=== PATIENT | female | born 1945 | race Caucasian/White ===

== ENCOUNTER 2018-04-04 22:59 | Outpatient (CLI) | payer MEDICARE | END 2018-04-04 23:00 | disposition critical access hospital (66) | LOC: EMS 22:59 | PROVIDERS: ATTEND Surgery | DX: R10.9 Unspecified abdominal pain (principal) | CPT/HCPCS: A0425; A0427 ==

== ENCOUNTER 2018-04-04 23:34 | Inpatient (IN) | payer MEDICARE, OTHER ==
--- NOTE | 2018-04-05 00:45 | ED Physician Documentation ---
PD HPI ABD PAIN - Stated complaint Stated Complaint: ABD PAIN - Chief complaint Chief Complaint: Abd Pain - History obtained from History obtained from: Patient - History of Present Illness Timing - onset: How many weeks ago (1) Timing - details: Gradual onset, Waxing and waning Pain level max: 10 Pain level now: 10 ("at least a ten", per patient) Quality: Pain Location: All over / everywhere Improved by: Laying still Worsened by: Moving Associated symptoms: Constipation. No: Fever, Nausea, Vomiting, Diarrhea, Dysuria, Hematuria Similar symptoms before: Diagnosis (SBO) Recently seen: Admitted (Discharged earler today (04/04/18) from [facility] ([place]) after overnight stay for SBO) - Additional information Additional information: patient says she developed cramping abdominal pain 1 week ago with abdominal distention, nausea but no vomiting. She was seen in a walk-in clinic in [place] and then sent to [facility] ED for further evaluation, CT A/P c/w partial SBO. She was sent home earlier today, and says she had soup this morning while still in the hospital and tolerated this well. However, this evening at home, she had potato soup that had more substance to it, and she rapidly developed severe abdominal pain that is unrelenting. Denies n/v. BIBA, given Fentanyl, zofran, and IV fluids en route with improvement in symptoms Review of Systems Constitutional: denies: Fever, Chills, Sweats Eyes: reports: Reviewed and negative Ears: reports: Reviewed and negative Nose: reports: Reviewed and negative Throat: reports: Reviewed and negative Cardiac: reports: Reviewed and negative Respiratory: reports: Reviewed and negative GI: reports: Abdominal Pain, Constipation. denies: Nausea, Vomiting, Diarrhea : denies: Dysuria, Frequency Skin: reports: Reviewed and negative Musculoskeletal: reports: Reviewed and negative Neurologic: reports: Reviewed and negative PD PAST MEDICAL HISTORY - Past Medical History Past Medical History: No Cardiovascular: Hypertension Respiratory: None Neuro: None Endocrine/Autoimmune: None GI: None DIRECTOR OF DISTRIBUTION: None : None HEENT: None Psych: None Musculoskeletal: None Derm: None - Past Surgical History Past Surgical History: No - Allergies Allergies/Adverse Reactions: Allergies Allergy/AdvReac Type Severity Reaction Status Date / Time No Known Drug Allergies Allergy Verified 04/04/18 23:39 - Social History Does the pt smoke?: No Smoking Status: Never smoker Does the pt drink ETOH?: Yes ETOH Use: Wine Does the pt have substance abuse?: No - Immunizations Immunizations are current?: Yes - POLST Patient has POLST: No PD ED PE NORMAL - Vitals Vital signs reviewed: Yes - General General: Alert and oriented X 3, No acute distress (NAD at rest, obvious painful discomfort with movement), Well developed/nourished - HEENT HEENT: Moist mucous membranes - Neck Neck: Supple, no meningeal sign - Cardiac Cardiac: RRR, No murmur, No gallop, No rub - Respiratory Respiratory: No respiratory distress, Clear bilaterally - Abdomen Abdomen: Soft, Non distended - Derm Derm: Normal color, Warm and dry - Extremities Extremities: No edema - Neuro Neuro: Alert and oriented X 3 PD ED PE EXPANDED - Abdomen Abdomen: Tender to palpation, Rebound, Guarding, Generalized/diffuse Results - Vitals Vitals: Vital Signs - 24 hr 04/04/18 04/05/18 04/05/18 23:39 01:05 01:59 Temperature 36.5 C 37.1 C 36.6 C Heart Rate 65 64 Respiratory 20 14 Rate Blood Pressure 152/70 H 152/70 H O2 Saturation 93 95 Oxygen O2 Source Room air - Labs Labs: Laboratory Tests 04/05/18 04/05/18 04/05/18 00:48 00:48 02:10 WBC 5.4 RBC 4.60 Hgb 13.5 Hct 40.3 MCV 87.7 MCH 29.4 MCHC 33.6 RDW 14.4 Plt Count 414 MPV 7.5 L Neut # (Auto) 4.7 Lymph # (Auto) 0.3 L Warrick # (Auto) 0.4 Eos # (Auto) 0.0 Baso # (Auto) 0.0 Absolute Nucleated RBC 0.00 Nucleated RBC % 0.1 Sodium 132 L Potassium 3.8 Chloride 100 L Carbon Dioxide 24 Anion Gap 8.0 BUN 17 Creatinine 0.8 Estimated GFR (MDRD) 71 L Glucose 159 H Lactic Acid 1.3 Calcium 8.4 L Total Bilirubin 0.4 AST 24 ALT 97 H Alkaline Phosphatase 44 Total Protein 5.3 L Albumin 2.8 L Globulin 2.5 Albumin/Globulin Ratio 1.1 Lipase 25 - Rads (name of study) abd. xrays Radiology: Prelim report reviewed, See rad report PD MEDICAL DECISION MAKING - ED course Complexity details: reviewed old records, reviewed results, re-evaluated patient, considered differential, d/w patient, d/w family ED course: D/W Dr. Ash, who came to ED and took patient to OR - Sepsis Event Vital Signs: Vital Signs - 24 hr 04/04/18 04/05/18 04/05/18 23:39 01:05 01:59 Temperature 36.5 C 37.1 C 36.6 C Heart Rate 65 64 Respiratory 20 14 Rate Blood Pressure 152/70 H 152/70 H O2 Saturation 93 95 Oxygen O2 Source Room air Departure - Departure Disposition: [facility] DC/Xfer Clinical Impression: Perforated abdominal viscus Condition: Stable Discharge Date/Time: 04/05/18 03:19
[2018-04-05 00:54] LABS: BASOPHILS % (AUTO) 0.4 %; EOSINOPHILS % (AUTO) 0.5 %; HGB - HEMOGLOBIN 13.5 g/dL (12.0-16.0); LYMPHOCYTES # (AUTO) 0.3 10^3/uL (1.5-3.5); LYMPHOCYTES % (AUTO) 6.1 %; MEAN CORPUSCULAR HEMOGLOBIN 29.4 pg (27.0-31.0); MEAN CORPUSCULAR HGB CONC 33.6 g/dL (32.0-36.0); MEAN CORPUSCULAR VOLUME 87.7 fL (81.0-99.0); MEAN PLATELET VOLUME 7.5 fL (7.9-10.8); MONOCYTES # (AUTO) 0.4 10^3/uL (0.0-1.0); MONOCYTES % (AUTO) 6.7 %; NEUTROPHILS # (AUTO) 4.7 10^3/uL (1.5-6.6); NEUTROPHILS % (AUTO) 86.3 %; PLT - PLATELET COUNT 414 10^3/uL (130-450); RED CELL DISTRIBUTION WIDTH 14.4 % (12.0-15.0); WHITE BLOOD COUNT 5.4 x10^3/uL (4.8-10.8)
[2018-04-05 01:08] LABS: ALBUMIN 2.8 g/dL (3.2-5.5); ALBUMIN/GLOBULIN RATIO 1.1 (1.0-2.2); BILIRUBIN,TOTAL 0.4 mg/dL (0.2-1.0); CALCIUM 8.4 mg/dL (8.5-10.3); CREATININE 0.8 mg/dL (0.4-1.0); TOTAL PROTEIN 5.3 g/dL (6.7-8.2)
--- NOTE | 2018-04-05 01:45 | XRAY Report ---
Reason: abd. pain Procedure Date: 04/05/2018 Accession Number: [id number] / [id number] Procedure: XR - Abdomen Acute CPT Code: FULL RESULT: EXAM: ABDOMINAL SERIES AND PA CHEST EXAM DATE: 04/05/2018 01:35 AM. CLINICAL HISTORY: Abd. pain. COMPARISON: None. TECHNIQUE: 2 views abdomen and 1 view chest. FINDINGS: CHEST: Lungs/Pleura: Retrocardiac opacity, which may reflect infiltrate or possibly a hiatal hernia. Trace left effusion. No pneumothorax. Mediastinum: Within exam limitations, cardiomediastinal contour is normal. ABDOMEN: Bowel Gas Pattern: Dilated loops of small and large bowel. Free Air: Present under the right hemidiaphragm. Other: None. IMPRESSION: Free intraperitoneal gas, compatible with bowel perforation. Critical result: Results called to Dr. Weston in the emergency department on 04/05/2018 at 1:45 AM. CASSIDY
[2018-04-05] MEDS ORDERED: PIPERACILLIN/TAZOBACTAM 3.375 GM in SODIUM CHLORIDE 0.9% MINIBAG 100 ML IV STA (01:58)
[2018-04-05] MEDS ORDERED: fentaNYL 100 MCG/2 ML VIAL IVP STA (01:58)
[2018-04-05] MEDS ORDERED: SODIUM CHLORIDE 0.9% 1,000 ML IV STA (01:58)
--- NOTE | 2018-04-05 02:55 | ANESTHESIA ---
Pre-Anesthesia VS, & Labs - Diagnosis perforated viscus - Procedure exploratory laparotomy Vital Signs: Temp Pulse Resp BP Pulse Ox 37.1 C 67 22 127/62 92 04/05/18 02:44 04/05/18 02:44 04/05/18 02:44 04/05/18 02:44 04/05/18 02:44 Height 5 ft 4 in Weight (kg) 58.1 kg Body Mass Index 21.9 - NPO >8 hours - Is Patient ?: Not Applicable - Lab Results Current Lab Results: Laboratory Tests 04/05/18 02:10: Lactic Acid 1.3 04/05/18 00:48: Sodium 132 L, Potassium 3.8, Chloride 100 L, Carbon Dioxide 24, Anion Gap 8.0, BUN 17, Creatinine 0.8, Estimated GFR (MDRD) 71 L, Glucose 159 H, Calcium 8.4 L, Total Bilirubin 0.4, AST 24, ALT 97 H, Alkaline Phosphatase 44, Total Protein 5.3 L, Albumin 2.8 L, Globulin 2.5, Albumin/Globulin Ratio 1.1, Lipase 25 04/05/18 00:48: WBC 5.4, RBC 4.60, Hgb 13.5, Hct 40.3, MCV 87.7, MCH 29.4, MCHC 33.6, RDW 14.4, Plt Count 414, MPV 7.5 L, Neut # (Auto) 4.7, Lymph # (Auto) 0.3 L, Overton # (Auto) 0.4, Eos # (Auto) 0.0, Baso # (Auto) 0.0, Absolute Nucleated RBC 0.00, Nucleated RBC % 0.1 Fish Bones: 04/05/18 00:48 04/05/18 00:48 Home Medications and Allergies Active Medications Sodium Chloride (Normal Saline 0.9%) 1,000 mls @ 150 mls/hr IV .Q6H40M STA Stop: 04/05/18 08:37 Last Admin: 04/05/18 02:21 Dose: 150 mls/hr Allergies/Adverse Reactions: Allergies Allergy/AdvReac Type Severity Reaction Status Date / Time No Known Drug Allergies Allergy Verified 04/04/18 23:39 Anes History & Medical History - Anesthetic History Family history of Anesthesia Complications: Denies - Medical History Cardiovascular: reports: Hypertension Pulmonary: reports: None Gastrointestinal: reports: None Urinary: reports: None Neuro: reports: None Musculoskeletal: reports: None Endocrine/Autoimmune: reports: None Blood Disorders: reports: None Skin: reports: None Smoking Status: Never smoker - Surgical History General: Colonoscopy Exam General: Alert Dental: WNL Mouth Openin Fingerbreadth Mallampati classification: III Thyromental Distance: 4-6 cm Respiratory: Lungs clear Cardiovascular: Regular rate Mental/Cognitive Status: Alert/Oriented X3 Plan Anesthesia Type: General Consent for Procedure(s) Verified and Reviewed: Yes Code Status: Attempt Resuscitation ASA classification: 2-Mild systemic disease Is this case an emergency?: Yes
--- NOTE | 2018-04-05 03:06 | CONSULTATION NOTE ---
Referring Provider Name of Referring Provider:: Damien Weston MD Consult Date: 04/05/18 Chief Complaint - Chief Complaint Chief Complaint: Free air under the RIGHT hemidiaphragm consistent with perforated bowel. History of Present Illness - Admitted From Admitted From:: [facility] ED - History Obtained From Records Reviewed: Yes History obtained from: Patient, Dr. Weston, chart. Exam Limitations: None. - History of Present Illness HPI Comment/Other: This very pleasant 72-year-old female presents to our emergency department with persistent and worsening abdominal pain. The patient had just been discharged from [facility] in [place] where she had been admitted with a small bowel obstruction. At that time she had had a CT scan which did not show any free air. It was felt that the patient had clinically improved so they fed her and sent her home. Unfortunately, once patient got home and had some potato soup the symptoms worsen to the point where she had unremitting severe abdominal pain. This was associated with some nausea and vomiting. Importantly the patient has had a rectal polyp removed followed by pelvic radiation. Ostensibly this was for a rectal cancer. History - Past Medical History Cardiovascular: reports: Hypertension Respiratory: reports: None Neuro: reports: None Endocrine/Autoimmune: reports: None GI: reports: None BODY ARTIST: reports: None : reports: None HEENT: reports: None Psych: reports: None Musculoskeletal: reports: None Derm: reports: None MRSA Hx?: No - POLST Patient has POLST: No Meds/Allgy - Allergies Allergies/Adverse Reactions: Allergies Allergy/AdvReac Type Severity Reaction Status Date / Time No Known Drug Allergies Allergy Verified 04/04/18 23:39 Review of Systems - Constitutional Constitutional: denies: Fatigue, Fever, Chills, Malaise - Eyes Eyes: denies: Pain - Ears, Nose & Throat Ears, Nose & Throat: denies: Ear pain - Cardiovascular Cariovascular: denies: Chest pain, Edema - Respiratory Respiratory: denies: Cough, Sputum production - Gastrointestinal Gastrointestinal: reports: Abdominal pain, Nausea. denies: Black stools, Bloody stools - Genitourinary Genitourinary: denies: Dysuria - Musculoskeletal Musculoskeletal: denies: Muscle pain, Back pain - Integumentary Integumentary: denies: Rash - Neurological Neurological: denies: General weakness, Focal weakness - Psychiatric Psychiatric: denies: Depression Exam - Vital Signs Reviewed Vital Signs: Yes Vital Signs: Vital Signs x48h Temp Pulse Resp BP Pulse Ox 04/05/18 02:44 37.1 C 67 22 127/62 92 04/05/18 01:59 36.6 C 64 14 152/70 H 95 04/05/18 01:05 37.1 C 65 20 152/70 H 93 04/04/18 23:39 36.5 C - Physical Exam General Appearance: positive: No acute distress (Lying quite still. Evaluated in room [address] [facility]'s emergency department. The daughter was at the bedside.) Eyes Bilateral: positive: No lid inflammation, Conjunctivae nml, No scleral icterus ENT: positive: Dry mucous membranes Neck: positive: Trachea midline Respiratory: positive: Chest non-tender, No respiratory distress, Breath sounds nml Cardiovascular: positive: Regular rate & rhythm Abdomen: positive: Tenderness (Peritoneal.), Abnml bowel sounds (Absent.) Skin: positive: Color nml Extremities: positive: Non-tender, Nml appearance Neurologic/Psychiatric: positive: Oriented x3 Conclusion/Plan - Diagnosis Diagnosis: Perforated viscus - Plan Plan: Exploratory laparotomy with possible small bowel resection and or large bowel resection and or ileostomy and/or colostomy. The patient is at risk for infecti on due to the perforated viscus. The risk of bleeding is remote. I explained all of this to her. For prophylaxis against deep venous thrombosis the patient will have teds and Venodyne's placed. I explained that she will be in the hospital for approximately 24 hours after she passes gas. Considering the fact that we do not know what is perforated or the extent of the peritonitis it is impossible to make a determination as to whether or not she will be discharged in 96 hours. Following the surgery the treatment will be supportive with IV fluids, antibiotics, pain medication as well as motivation to keep walking. 45 minutes of [id number] time was spent with the patient with majority of it spent in discussion, coordination of her care, as well as completion of the requisite paperwork I wish to thank Dr. Neil Weston for this consultation. - Lab Results Lab results reviewed: Yes Fish Bones: 04/05/18 00:48 04/05/18 00:48 - Diagnostic Imaging Results Diagnostic Imaging Results: positive: Final report reviewed, Read independently Diagnostic Imaging Results Comments: It is clear that there is free air underneath the right hemidiaphragm. The sour ce of this air is a little bit less clear.
[2018-04-05] MEDS ORDERED: BUPIVACAINE 0.5%-EPI 1:200000 PF 30 ML VIAL ONE (03:07)
[2018-04-05] MEDS ORDERED: LACTATED RINGERS 1,000 ML IV ONE ×3 (04:00→05:01)
[2018-04-05] MEDS ORDERED: BUPIVACAINE 0.5%-EPI 1:200000 PF 30 ML VIAL SUBQ ONE (04:00)
[2018-04-05] MEDS ORDERED: PHENOL THROAT SPRAY 177 ML MM PRN (04:55)
[2018-04-05] MEDS ORDERED: ONDANSETRON 4 MG/2 ML VIAL IVP PRN (04:55)
--- NOTE | 2018-04-05 04:59 | OPERATIVE REPORT ---
Operative Report - General Admit Date: 04/05/18 Planned Procedure: Exploratory laparotomy, possible small bowel resection, possible large jaime Pre-Op Diagnosis: Perforated viscus Procedure Performed: Exploratory laparotomy with resection of small bowel perforation and side to side small bowel anastomosis, abdominal washout, placement of drain Post Op Diagnosis: Perforation and obstruction of small bowel by a very very hard piece of wha - Procedure Note Primary Surgeon: Tj Ash MD Anesthesia Provider: Christine Leahy CRNA Anesthesia Technique: General ET tube IV Fluids (mL): 2,000 Estimated Blood Loss (mL): 5 Urine Output (mL): 50 Drain/Tube Type: Cayden drain (19 Fr Cayden) Complications: None - Other Other Information/Narrative: OPERATIVE DESCRIPTION/REPORT: After verbal and written informed consent was obtained detailing the risks of infection, bleeding requiring transfusion with its risks, nerve injury, and , and after I met with the patient confirming the surgery, the patient was brought to the operative suite and placed supine on the operating table. Great care was taken to avoid pressure points to prevent pressure necrosis or nerve injury. Monitoring devices were applied along with TEDs and pneumatic compressive stockings (to prevent DVT). The patient received preoperative antibiotics for surgical prophylaxis. Christine Leahy CRNA sedated and anesthetized the patient for the entire procedure. The patient was prepped and draped in the usual sterile manner. With the patient draped my initials were clearly visible. A "time in" then confirmed that the patient was identified with 3 identifiers (name, date and medical record number), the history and physical was in the chart, the signed consent confirming the procedure was in the chart, the patient was in the correct position, the aforementioned prophylactic measures were in place or given, we had the correct personnel and equipment to complete the procedure and that anesthesia, surgery and nursing were given an opportunity to express any concerns. With the agreement of everyone in the room, we proceeded with the operation. A vertical incision was made above and below the umbilicus and carried around the umbilicus. Sharp dissection utilizing Bovie electrocautery was used to expose the linea alba. The linea alba and subsequently the peritoneum were incised gaining entry into the abdomen without incident. Turbid light green fluid was noted in the abdomen that had a slight feculent smell. Manual examination of the abdomen quickly identified the problem. In the mid-portion of the ileum was an extremely hard intraluminal mass that due to its size and relatively sharp shape had clearly obstructed and perforated the small bowel. The small bowel beyond this was decompressed. I opened the bowel using the perforation in a transverse manner. The intraluminal mass was removed and it had layers. It was not identifiable by me but appeared to be very very dense probable food material. I must impress again on how hard this lesion was - it was rock like. I removed it and used the two limb of the ileum to place the two ends of a AMINATA-75 stapler. I fired the stapler forming the [id number] anastamosis. The mucosal opening was then resected with the placement of the AMINATA-75 stapler with a reload. The resected portion of the ileum and the hard lesion was sent for pathologic evaluation. The anastamosis was then butressed circumferentially with 3-0 Vicryl Limbert sutures. Manual examination revealed that the anastamosis was widely patent. I then "ran" the small bowel from the ligament of Treitz to the cecum and there were no other areas that were compromised and there were no other hard intraluminal masses. There were, however, multiple small bowel diverticulae in the mesentary. The abdomen was then copiously irrigated with 2 liters of warm sterile saline. A separate stab incision was used to place a 19 Fr Cayden drain. The drain was directed into the midportion of the abdomen. The drain was secured to the skin using a 3-0 Nylon in a Zay sandaled fashion. The fascia was closed using 0 looped PDS in a running fashion. This was started superiorly and inferiorly and run to the middle tying the two ends together and dunking the knot. The skin incision was approximated with skin sacha. At this point a time out was performed that confirmed that all the counts were correct, the procedure that was performed, the blood loss, the IV fluids administered, and the patients condition. A dressing was placed on the wound. Having tolerated the procedure well, the patient was subsequently extubated and taken to recovery room in good and stable condition. Dragon disclaimer: This document was created in part using voice recognition technology. Because of the inherent limitations of the system ([employer]'s [employer] user manual states that the licensee understands that speech recognition is a statistical process and that recognition errors are inherent in the process), occasional same sounding word substitutions and grammatical errors do occur and persist despite proofreading. Please read this document for context.
[2018-04-05] MEDS ORDERED: DEXAMETHASONE 4 MG/ML VIAL IVP ONE (05:00)
[2018-04-05] MEDS ORDERED: ONDANSETRON 4 MG/2 ML VIAL IVP ONE (05:00)
[2018-04-05] MEDS ORDERED: ROCURONIUM 50 MG/5 ML VIAL IVP ONE (05:00)
[2018-04-05] MEDS ORDERED: ACETAMINOPHEN 1,000 MG/100 ML 100 ML IV ONE ×2 (05:00→05:17)
[2018-04-05] MEDS ORDERED: PROPOFOL 200 MG/20 ML VIAL IVP ONE (05:00)
[2018-04-05] MEDS ORDERED: fentaNYL 250 MCG/5 ML VIAL IVP ONE (05:00)
[2018-04-05] MEDS ORDERED: KETOROLAC 30 MG/ML VIAL ONE (05:16)
[2018-04-05] MEDS: D5NS W/20 MEQ KCL 1,000 ML IV SCH ×2 (05:51→17:44)
[2018-04-05] MEDS ORDERED: PIPERACILLIN/TAZOBACTAM 3.375 GM in SODIUM CHLORIDE 0.9% MINIBAG 100 ML IV SCH (06:00)
[2018-04-05] MEDS: PANTOPRAZOLE 40 MG VIAL IVP SCH (06:34)
[2018-04-05] MEDS: SODIUM CHLORIDE FLUSH 0.9% 10 ML SYRINGE IVP PRN ×2 (06:34→18:25)
[2018-04-05] MEDS: HYDROmorphone 1 MG/ML CARPUJECT IVP PRN ×2 (06:40→09:10)
--- NOTE | 2018-04-05 06:45 | XRAY Report ---
Reason: NG tube placement Procedure Date: 04/05/2018 Accession Number: [id number] / [id number] Procedure: XR - Chest 1 View X-Ray CPT Code: 31420 FULL RESULT: EXAM: CHEST RADIOGRAPHY EXAM DATE: 04/05/2018 06:36 AM. CLINICAL HISTORY: NG tube placement. COMPARISON: ABDOMEN ACUTE 04/05/2018 1:15 AM. TECHNIQUE: 1 view. FINDINGS: Lungs/Pleura: Retrocardiac density persists. Mediastinum: Within exam limitations, the cardiomediastinal contour is normal. Other: Enteric tube terminates in the stomach. IMPRESSION: Enteric tube terminating in the stomach. Persistent retrocardiac opacity. RADIA
[2018-04-05] MEDS: SODIUM CHLORIDE FLUSH 0.9% 10 ML SYRINGE IVP SCH ×2 (07:11→17:44)
[2018-04-05 07:41] LABS: BILIRUBIN,URINE NEGATIVE (NEGATIVE); GLUCOSE, URINE (UA) NEGATIVE (NEGATIVE); KETONES,URINE (UA) NEGATIVE (NEGATIVE); LEUKOCYTE ESTERASE, URINE NEGATIVE (NEGATIVE); NITRITE,URINE POSITIVE (NEGATIVE); OCCULT BLOOD,URINE TRACE-LYSE (NEGATIVE); PROTEIN,URINE NEGATIVE (NEGATIVE); UROBILINOGEN,URINE 0.2 (NORMAL) E.U./dL (NORMAL)
[2018-04-05 08:00] LABS: CLARITY,URINE CLEAR (CLEAR)
[2018-04-05 08:04] LABS: RBC,URINE None Seen /HPF (0-5); SQUAMOUS EPITHELIAL CELL,UR FEW Squamous (<= Few)
[2018-04-05 08:05] LABS: BACTERIA,URINE Many /HPF (None Seen)
[2018-04-05 08:08] LABS: EPITHELIAL CELLS,UR RARE Renal Tubular /HPF (<= Few); MUCUS,URINE Few Strands
[2018-04-05] MEDS: PIPERACILLIN/TAZOBACTAM 3.375 GM in SODIUM CHLORIDE 0.9% MINIBAG 100 ML IV SCH ×3 (08:54→20:15)
[2018-04-05] MEDS ORDERED: HYDROmorphone 0.5 MG/0.5 ML SYRINGE ONE ×2 (09:10→11:47)
[2018-04-05] MEDS: ACETAMINOPHEN 1,000 MG/100 ML 100 ML IV SCH ×2 (11:51→17:42)
[2018-04-05] MEDS: HYDROmorphone 0.5 MG/0.5 ML SYRINGE IVP PRN ×3 (11:52→18:25)
[2018-04-06] MEDS: ACETAMINOPHEN 1,000 MG/100 ML 100 ML IV SCH ×4 (00:07→18:45)
[2018-04-06] MEDS: PIPERACILLIN/TAZOBACTAM 3.375 GM in SODIUM CHLORIDE 0.9% MINIBAG 100 ML IV SCH ×4 (01:19→20:14)
[2018-04-06] MEDS: SODIUM CHLORIDE FLUSH 0.9% 10 ML SYRINGE IVP SCH ×3 (02:35→15:34)
[2018-04-06] MEDS: D5NS W/20 MEQ KCL 1,000 ML IV SCH ×2 (04:49→16:21)
[2018-04-06] MEDS: PANTOPRAZOLE 40 MG VIAL IVP SCH (06:28)
[2018-04-06] MEDS: HYDROmorphone 0.5 MG/0.5 ML SYRINGE IVP PRN ×2 (08:50→17:42)
--- NOTE | 2018-04-06 18:06 | PROVIDER PROGRESS NOTE ---
Subjective - General Admit Date: 04/05/18 Procedure Date: 04/05/18 Post Op Days: 2 Procedure Performed: Exploratory laparotomy, resection of small bowel perforation, small bowel a - Review of Systems Wound/Incisions: positive: Dressing dry and intact General: positive: No symptoms HEENT: positive: No symptoms Pulmonary: positive: No symptoms Cardiovascular: positive: No symptoms Gastrointestinal: positive: No symptoms Genitourinary: positive: No symptoms Musculoskeletal: positive: No symptoms Skin: positive: No symptoms Psychiatric: positive: No symptoms Objective - Patient Data Reviewed Vital Signs: Yes Vital Signs: Vital Signs x48h Temp Pulse Pulse Resp BP Pulse Ox 04/06/18 17:21 36.4 C L 63 20 99 04/06/18 16:38 166/82 H 04/06/18 16:07 36.4 C L 63 20 182/72 H 99 04/06/18 12:57 60 146/58 H Weight: Weight 04/04/18 04/05/18 04/06/18 23:59 23:59 23:59 Weight (kg) 58.1 kg 59.5 kg Intake & Output: Intake and Output Totals x24h 04/04/18 04/05/18 04/06/18 23:59 23:59 23:59 Intake Total 3040.000 3330.000 Output Total 955 925 Balance 2085.000 2405.000 - Lab Results Lab Results: 04/05/18 00:48 04/05/18 00:48 - Current Medications Current Medications: Current Medications Generic Name Dose Route Start Last Admin Trade Name Freq PRN Reason Stop Dose Admin Hydromorphone HCl 0.5 mg 04/05/18 11:46 04/06/18 17:42 Dilaudid Inj Syringe IVP 0.5 mg Q2HR PRN Administration PAIN Potassium Chloride/Dextrose/Sod Cl 1,000 mls @ 100 mls/hr 04/05/18 05:00 04/06/18 17:03 IV 100 mls/hr .Q10H LINDA Infusion Piperacillin Sod/Tazobactam 100 mls @ 200 mls/hr 04/05/18 08:00 04/06/18 13:56 Sod 3.375 gm/ Sodium Chloride IV Infused Q6H LINDA Infusion Pantoprazole Sodium 40 mg 04/05/18 07:00 09/26/18 06:28 Protonix IVP 40 mg QDAC LINDA Administration Phenol/Menthol 1 sprays 04/05/18 04:55 04/06/18 00:05 Chloraseptic MM 1 sprays Q2HR PRN Administration Throat Pain Sodium Chloride 10 ml 04/05/18 09:00 04/06/18 15:34 Normal Saline Flush 0.9% IVP Not Given 0100,0900,1700 LINDA Sodium Chloride 10 ml 04/05/18 04:52 04/05/18 18:25 Normal Saline Flush 0.9% IVP 10 ml PRN PRN Administration NEEDED PER PROVIDER ORDERS - Physical Exam Wound/Incisions: positive: Dressing dry and intact General Appearance: positive: No acute distress Eyes Bilateral: positive: No lid inflammation, Conjunctivae nml, No scleral icterus ENT: positive: No signs of dehydration Neck: positive: Trachea midline Respiratory: positive: Chest non-tender, No respiratory distress, Breath sounds nml Cardiovascular: positive: Regular rate & rhythm Abdomen: positive: Nml bowel sounds, Tenderness (Incisional.) Skin: positive: Color nml Extremities: positive: Non-tender, Nml appearance Neurologic/Psychiatric: positive: Oriented x3 ABX Reporting Has patient been on IV antibiotics over the past 48 hours?: Yes Impression/Plan - Problem List Problem List: POD #1 s/p exploratory laparotomy with resection of small bowel perforation and [id number] anastamosis 1) FEN On ERAS protocol. 2) ID IV antibiotics for bowel perforation with gross spillage of intestinal contents into abdomen. 3) DVT Prophylaxis in place and patient is wonderfully ambulatory. 4) Path Pending. 5) HTN Will start po meds when patient can clearly tolerate.
[2018-04-06] MEDS ORDERED: LISINOPRIL 20 MG TABLET PO SCH (23:00)
[2018-04-07] MEDS: ENALAPRILAT 1.25 MG/ML VIAL IVP SCH ×2 (00:04→05:53)
[2018-04-07] MEDS: SODIUM CHLORIDE FLUSH 0.9% 10 ML SYRINGE IVP SCH ×4 (00:08→16:44)
[2018-04-07] MEDS: ACETAMINOPHEN 1,000 MG/100 ML 100 ML IV SCH ×2 (00:50→06:28)
[2018-04-07] MEDS: D5NS W/20 MEQ KCL 1,000 ML IV SCH ×4 (01:54→16:46)
[2018-04-07] MEDS: PIPERACILLIN/TAZOBACTAM 3.375 GM in SODIUM CHLORIDE 0.9% MINIBAG 100 ML IV SCH ×4 (02:01→21:02)
[2018-04-07] MEDS: HYDROmorphone 0.5 MG/0.5 ML SYRINGE IVP PRN (03:55)
[2018-04-07] MEDS: PANTOPRAZOLE 40 MG VIAL IVP SCH (06:59)
[2018-04-07] MEDS ORDERED: ACETAMINOPHEN 500 MG TABLET PO PRN (09:44)
[2018-04-07] MEDS ORDERED: HYDROmorphone 0.5 MG/0.5 ML SYRINGE IVP PRN (09:45)
[2018-04-07] MEDS: LISINOPRIL 20 MG TABLET PO SCH ×2 (11:23→21:02)
[2018-04-07] MEDS: oxyCODONE 5 MG TABLET PO PRN (21:26)
--- NOTE | 2018-04-07 21:33 | PROVIDER PROGRESS NOTE ---
Subjective - General Admit Date: 04/05/18 Procedure Date: 04/05/18 Post Op Days: 2 Procedure Performed: Exploratory laparotomy, resection of small bowel perforation, small bowel a - Review of Systems Wound/Incisions: positive: Healing well Drain Type: 19 Fr Cayden Drain Output Description: Serous Approximate mls Output: 135 General: positive: No symptoms HEENT: positive: No symptoms Pulmonary: positive: No symptoms Cardiovascular: positive: No symptoms Gastrointestinal: positive: No symptoms Genitourinary: positive: No symptoms Musculoskeletal: positive: No symptoms Skin: positive: No symptoms Psychiatric: positive: No symptoms - Other Other Information/Narrative: Patient has passed gas today. Feeling better. Blood pressure on the high side but expected with surgery performed. Objective - Patient Data Reviewed Vital Signs: Yes Vital Signs: Vital Signs x48h Temp Pulse Resp BP Pulse Ox 04/07/18 21:06 70 194/81 H 04/07/18 16:51 36.8 C 70 20 180/98 H 99 Weight: Weight 04/05/18 04/06/18 04/07/18 23:59 23:59 23:59 Weight (kg) 59.5 kg Intake & Output: Intake and Output Totals x24h 04/05/18 04/06/18 04/07/18 23:59 23:59 23:59 Intake Total 3040.000 3875.000 3600 Output Total 955 1555 3010 Balance 2085.000 2320.000 590 - Lab Results Lab Results: 04/05/18 00:48 04/05/18 00:48 - Current Medications Current Medications: Current Medications Generic Name Dose Route Start Last Admin Trade Name Freq PRN Reason Stop Dose Admin Hydromorphone HCl 0.5 mg 04/07/18 09:45 04/07/18 16:44 Dilaudid Inj Syringe IVP 0.5 mg Q2HR PRN Administration PAIN Piperacillin Sod/Tazobactam 100 mls @ 200 mls/hr 04/05/18 08:00 04/07/18 21 :02 Sod 3.375 gm/ Sodium Chloride IV 200 mls/hr Q6H LINDA Administration Potassium Chloride/Dextrose/Sod Cl 1,000 mls @ 50 mls/hr 04/07/18 09:45 04/07/18 16:46 IV 50 mls/hr .Q20H LINDA Administration Lisinopril 20 mg 04/07/18 10:00 04/07/18 21:02 Zestril PO 20 mg BID LINDA Administration Oxycodone HCl 5 mg 04/07/18 09:43 04/07/18 21:26 Roxicodone PO 5 mg Q4HR PRN Administration PAIN Pantoprazole Sodium 40 mg 04/05/18 07:00 04/07/18 06:59 Protonix IVP 40 mg QDAC LINDA Administration Phenol/Menthol 1 sprays 04/05/18 04:55 04/06/18 00:05 Chloraseptic MM 1 sprays Q2HR PRN Administration Throat Pain Sodium Chloride 10 ml 04/05/18 09:00 04/07/18 16:44 Normal Saline Flush 0.9% IVP 10 ml 0100,0900,1700 LINDA Administration Sodium Chloride 10 ml 04/05/18 04:52 04/05/18 18:25 Normal Saline Flush 0.9% IVP 10 ml PRN PRN Administration NEEDED PER PROVIDER ORDERS - Physical Exam Wound/Incisions: positive: Healing well General Appearance: positive: No acute distress Eyes Bilateral: positive: No lid inflammation, Conjunctivae nml, No scleral icterus ENT: positive: No signs of dehydration Neck: positive: Trachea midline Respiratory: positive: Chest non-tender, No respiratory distress, Breath sounds nml Cardiovascular: positive: Regular rate & rhythm Abdomen: positive: Nml bowel sounds, Tenderness (Incisional.) Skin: positive: Color nml Extremities: positive: Non-tender, Nml appearance Neurologic/Psychiatric: positive: Oriented x3 ABX Reporting Has patient been on IV antibiotics over the past 48 hours?: Yes Impression/Plan - Problem List Problem List: POD #2 s/p exploratory laparotomy with resection of small bowel perforation and yyik-lo-[id number] anastamosis 1) FEN Tolerating a diet and passing gas. IVF decreased. 2) ID Still on IV antibiotics for bowel perforation with gross spillage of intestinal contents into abdomen. Check CBC in AM. 3) DVT Prophylaxis in place and patient is wonderfully ambulatory. 4) Path Pending. 5) HTN Lisinopril 20 mg BID (home med) started. Will not treat unless symptomatic. 6) Care Shower in AM.
[2018-04-08] MEDS: PIPERACILLIN/TAZOBACTAM 3.375 GM in SODIUM CHLORIDE 0.9% MINIBAG 100 ML IV SCH ×3 (01:54→14:10)
[2018-04-08] MEDS: oxyCODONE 5 MG TABLET PO PRN ×2 (02:16→14:09)
[2018-04-08] MEDS: SODIUM CHLORIDE FLUSH 0.9% 10 ML SYRINGE IVP SCH ×2 (02:26→06:23)
[2018-04-08] MEDS: PANTOPRAZOLE 40 MG VIAL IVP SCH (06:15)
[2018-04-08] MEDS: LISINOPRIL 20 MG TABLET PO SCH (08:46)
[2018-04-08 08:51] VITALS: BP 170/90
--- NOTE | 2018-04-08 13:54 | DISCHARGE SUMMARY ---
"Discharge Summary Admit Date: 04/05/18 Discharge Date: 04/08/18 Discharging Provider: Tj Ash MD Code Status: Attempt Resuscitation Condition at Discharge: Good Discharge Disposition: 01 Home, Self Care - DIAGNOSES Admission Diagnoses: Free air, perforated viscus, SBO Discharge Diagnoses with Status of Each Condition: All resolved. - HPI History of Present Illness: 72 year old female presented to [facility] ED with peritoneal abdominal pain associated with an elevated WBC and free air on AXR. Diagnosis of viscus perforation made and patient taken urgently to the operating room where I resected the perforated ileum and performed a [id number] anastamosis. - CONSULTS | PROCEDURES Consultations: Surgical consult. Procedures: Exploratory laparotomy and resection of bowel perforation with [id number] anastamosis (Nilsa on 04/05/18) - HOSPITAL COURSE Hospital Course: Uncomplicated. - ALLERGIES Allergies/Adverse Reactions: Allergies Allergy/AdvReac Type Severity Reaction Status Date / Time No Known Drug Allergies Allergy Verified 04/04/18 23:39 - MEDICATIONS Home Medications: Ambulatory Orders Medication Instructions Recorded Confirmed Ascorbic Acid [Vitamin C] 500 mg PO DAILY 04/05/18 04/05/18 Aspirin [Aspirin EC] 81 mg PO DAILY 04/05/18 04/05/18 Calcium Carbonate/Vitamin D3 1 each PO DAILY 04/05/18 04/05/18 [Calcium 600 + Vit D 400 Tablet] Carvedilol 9.375 mg PO BID 04/05/18 04/05/18 Cetirizine HCl 10 mg PO DAILY 04/05/18 04/05/18 Fluticasone [Flonase] 2 sprays [place] DAILY 04/05/18 04/05/18 Lisinopril 20 mg PO BID 04/05/18 04/05/18 Loratadine [Claritin] 10 mg PO DAILY 04/05/18 04/05/18 Multivitamin [Theragran] 1 tab PO DAILY 04/05/18 04/05/18 Home Medications Other | Comments: Ciprofloxacin, Flagyl, Percocet, Colace written for. - PHYSICAL EXAM AT DISCHARGE General Appearance: positive: No acute distress Eyes Bilateral: positive: No lid inflammation, Conjunctivae nml, No scleral icterus ENT: positive: No signs of dehydration Neck: positive: Trachea midline Respiratory: positive: Chest non-tender, No respiratory distress, Breath sounds nml Cardiovascular: positive: Regular rate & rhythm Abdomen: positive: Tenderness (Incisional.), Other (Removed the drain as well as half the sacha and the patient tolerated this well.) Skin: positive: Color nml Extremities: positive: Non-tender, Nml appearance Neurologic/Psychiatric: positive: Oriented x3 - LABS Result Diagrams: 04/05/18 00:48 04/05/18 00:48 - FOLLOW UP Follow Up: In my office either this Wednesday or . Call on Wednesday for appointment later in the week. - TIME SPENT Time Spent in Discharge (Minutes): 45"
--- NOTE | 2018-04-08 14:06 | Discharge Plan ---
Discharge Plan Disposition: Home, Self Care Condition: Good Prescriptions: Ciprofloxacin HCl [Cipro] 500 mg PO BID #14 tablet Docusate Sodium 250Mg Capsule [Colace 250Mg Capsule] 250 mg PO DAILY #10 capsule metroNIDAZOLE [Flagyl] 250 mg PO Q6H #28 tablet oxyCODONE/ACET 5/325 [Percocet 5 mg/325 mg] 1 each PO Q4-6H #20 tablet Diet: Regular Activity Restrictions: No lifting >15 pounds for 6 weeks. Shower Restrictions: No Driving Restrictions: Yes (Until seen and cleared by me.) Weight Bearing: Full Weight Additional Instructions or Follow Up instructions: Ice pack to wound if it helps. Okay to shower, hot tub, swim, general diet, walk, run, climb stairs, have sex. No Smoking: If you smoke, Please STOP! Call for help. Follow-up with: Shavonne Painter MD [Primary Care Provider] - Tj Ash MD [Provider Admit Priv/Credential] -
== END 2018-04-08 15:15 | disposition home or self-care (01) | DRG 330 ==
LOC: EDUNIT# → ED 23:34 → MS3 04-05 02:35 → MS2 04-05 15:30
PROVIDERS: ADMIT Surgery; ATTEND Surgery
PROC: 0D1B0ZB Bypass Ileum to Ileum, Open Approach (ICD-10-PCS; 2018-04-05)
PROC: 0DT80ZZ Resection of Small Intestine, Open Approach (ICD-10-PCS; principal; 2018-04-05 02:52)
DX: K63.1 Perforation of intestine (nontraumatic) (principal); K59.00 Constipation, unspecified; K56.609 Unspecified intestinal obstruction, unspecified as to partial versus complete obstruction; I10 Essential (primary) hypertension; T18.3XXA Foreign body in small intestine, initial encounter
CPT/HCPCS: 36415; 71045; 74022; 80053; 81001; 81003; 83605; 83690; 85025; 87086; 87181; 96365; 96375; 99283; 99284

== ENCOUNTER 2019-04-09 00:39 | Emergency (ER) | payer MEDICARE ==
[2019-04-09 01:38] LABS: BASOPHILS # (AUTO) 0.1 10^3/uL (0.0-0.1); BASOPHILS % (AUTO) 0.6 %; EOSINOPHILS # (AUTO) 0.1 10^3/uL (0.0-0.7); EOSINOPHILS % (AUTO) 0.5 %; HGB - HEMOGLOBIN 10.5 g/dL (12.0-16.0); LYMPHOCYTES % (AUTO) 7.8 %; MEAN CORPUSCULAR HEMOGLOBIN 20.8 pg (27.0-31.0); MEAN CORPUSCULAR VOLUME 69.2 fL (81.0-99.0); MEAN PLATELET VOLUME 10.1 fL (7.9-10.8); MONOCYTES # (AUTO) 0.7 10^3/uL (0.0-1.0); MONOCYTES % (AUTO) 5.4 %; NEUTROPHILS # (AUTO) 10.6 10^3/uL (1.5-6.6); NEUTROPHILS % (AUTO) 85.4 %; PLT - PLATELET COUNT 465 10^3/uL (130-450); RED BLOOD COUNT 5.06 10^6/uL (4.20-5.40); RED CELL DISTRIBUTION WIDTH 23.8 % (12.0-15.0); WHITE BLOOD COUNT 12.4 x10^3/uL (4.8-10.8)
[2019-04-09] MEDS ORDERED: SODIUM CHLORIDE 0.9% 1,000 ML IV ONE (01:40)
[2019-04-09] MEDS ORDERED: ONDANSETRON 4 MG/2 ML VIAL IVP STA (01:40)
[2019-04-09] MEDS ORDERED: MORPHINE 2 MG/ML CARPUJECT IVP STA (01:40)
--- NOTE | 2019-04-09 01:42 | ED Physician Documentation ---
History of Present Illness - Stated complaint Stated Complaint: N/V CRAMPS - Chief complaint Chief Complaint: Abd Pain - Additonal information Additional information: This is a 73-year-old female with history of bowel obstructions and past bowel perforation ~1 year ago who presents with abdominal pain vomiting and cramping. Patient had a dinner in [facility], and on her way home in the evening she began developing some abdominal pain. She has vomited twice, emesis was nonbloody and nonbilious. Her pain is become severe and crampy, it is somewhat migratory. Her belly does feel distended this feels similar to the past bowel obstruction she has had. No fever. 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 : Incontinence, Frequency HEENT: None Psych: None Musculoskeletal: Scoliosis Derm: None - Past Surgical History Past Surgical History: No General: Colonoscopy HEENT: Cataracts - Present Medications Home Medications: Ambulatory Orders Medication Instructions Recorded Confirmed Ascorbic Acid [Vitamin C] 500 mg PO DAILY 04/05/18 04/05/18 Aspirin [Aspirin EC] 81 mg PO DAILY 04/05/18 04/05/18 Calcium Carbonate/Vitamin D3 1 each PO DAILY 04/05/18 04/05/18 [Calcium 600-Vit D3 400 Tablet] Carvedilol 9.375 mg PO BID 04/05/18 04/05/18 Cetirizine HCl 10 mg PO DAILY 04/05/18 04/05/18 Fluticasone [Flonase] 2 sprays [place]EN DAILY 04/05/18 04/05/18 Lisinopril 20 mg PO BID 04/05/18 04/05/18 Loratadine [Claritin] 10 mg PO DAILY 04/05/18 04/05/18 Multivitamin [Theragran] 1 tab PO DAILY 04/05/18 04/05/18 Ciprofloxacin HCl [Cipro] 500 mg PO BID #14 tablet 04/08/18 Docusate Sodium 250Mg Capsule 250 mg PO DAILY #10 capsule 04/08/18 [Colace 250Mg Capsule] metroNIDAZOLE [Flagyl] 250 mg PO Q6H #28 tablet 04/08/18 oxyCODONE/ACET 5/325 [Percocet 5 1 each PO Q4-6H #20 tablet 04/08/18 mg/325 mg] Ondansetron Odt [Zofran] 4 mg TL Q6H PRN #8 tablet 04/09/19 - Allergies Allergies/Adverse Reactions: Allergies Allergy/AdvReac Type Severity Reaction Status Date / Time No Known Drug Allergies Allergy Verified 04/09/19 00:44 - Social History Does the pt smoke?: No Smoking Status: Never smoker Does the pt drink ETOH?: Yes Does the pt have substance abuse?: No - Immunizations Immunizations are current?: Yes - POLST Patient has POLST: No PD ED PE NORMAL - Vitals Vital signs reviewed: Yes - General General: Alert and oriented X 3 - HEENT HEENT: PERRL - Neck Neck: Supple, no meningeal sign - Cardiac Cardiac: RRR - Respiratory Respiratory: Clear bilaterally - Abdomen Abdomen: Other (Bowel sounds present and hyperactive, abdomen is very slightly distended, Patient is tender to palpation more in the left lower quadrant.No guarding.) - Derm Derm: Warm and dry - Extremities Extremities: No deformity - Neuro Neuro: Alert and oriented X 3 - Psych Psych: Normal mood, Normal affect Results - Vitals Vitals: Oxygen O2 Source Room air - Labs Labs: Laboratory Tests 04/09/19 04/09/19 04/09/19 01:10 01:10 02:40 WBC 12.4 H RBC 5.06 Hgb 10.5 L Hct 35.0 L MCV 69.2 L MCH 20.8 L MCHC 30.0 L RDW 23.8 H Plt Count 465 H MPV 10.1 Neut # (Auto) 10.6 H Lymph # (Auto) 1.0 L [place] # (Auto) 0.7 Eos # (Auto) 0.1 Baso # (Auto) 0.1 Absolute Nucleated RBC 0.00 Nucleated RBC % 0.0 Manual Slide Review Indicated WBC Morphology NORMAL APPEARANCE Platelet Estimate INCREASED (>450,000) Platelet Morphology NORMAL APPEARANCE RBC Morph Micro Appear 1+ ANISOCYTOSIS Sodium 139 Potassium 3.8 Chloride 101 Carbon Dioxide 28 Anion Gap 10.0 BUN 18 Creatinine 0.9 Estimated GFR (MDRD) 62 L Glucose 160 H Calcium 9.9 Total Bilirubin 0.3 AST 23 ALT 21 Alkaline Phosphatase 63 Total Protein 7.3 Albumin 4.3 Globulin 3.0 Albumin/Globulin Ratio 1.4 Lipase 36 Urine Color YELLOW Urine Clarity CLEAR Urine pH 7.5 Ur Specific [place] 1.015 Urine Protein NEGATIVE Urine Glucose (UA) NEGATIVE Urine Ketones 40 H Urine Occult Blood NEGATIVE Urine Nitrite NEGATIVE Urine Bilirubin NEGATIVE Urine Urobilinogen 0.2 (NORMAL) Ur Leukocyte Esterase TRACE H Urine RBC None Seen Urine WBC 4-5 Ur Squamous Epith Cells MOD Squamous H Urine Bacteria Many H Ur Microscopic Review INDICATED Urine Culture Comments NOT INDICATED - Rads (name of study) CT abd/pelvis Radiology: Other (Moderate hiatal hernia, no evident etiology for patient's nausea and vomiting) PD MEDICAL DECISION MAKING - ED course Complexity details: considered differential (Bowel obstruction, diverticulitis, bowel perforation, pancreatitis, biliary pathology, partial obstruction) ED course: On arrival patient is in significant pain, she was given morphine, Zofran and 1 L normal saline bolus. Her labs reveal a mild leukocytosis, and anemia which appears slightly worse than last value we have in our system. Patient states she knows of this anemia and is following up with her primary care provider on this already and taken iron supplements. CT scan was performed and shows no evidence of obstruction, does show moderate hiatal hernia. On repeat examination patient is feeling much better, and she is able to drink fluids without any vomiting. Her urine shows a few white blood cells also some squamous epithelium, equivocal for infection. I discussed this with the patient - she has no urinary symptoms and would prefer to hold off antibiotics until we receive culture results. Given that she is feeling well, now has a nontender abdomen, and is able tolerate p.o., she was discharged home with plans with PCP follow-up and return to the emergency department if she is having any new or worsening symptoms. Departure - Departure Disposition: 01 Home, Self Care Clinical Impression: Abdominal pain Qualifiers: Abdominal location: generalized Qualified Code(s): R10.84 - Generalized abdominal pain Condition: Good Instructions: ED Abdominal Pain Unkn Cause Follow-Up: Shavonne Painter MD [Primary Care Provider] - Within 1 week Prescriptions: Ondansetron Odt [Zofran] 4 mg TL Q6H PRN #8 tablet PRN Reason: Nausea / Vomiting Comments: You were seen today for abdominal pain. Your CT scan does not show a clear cause of your pain, your labs show that you have an anemia which is slightly worse than last year (hemoglobin 10.7). Please follow-up with your primary care provider on your anemia and your symptoms. If you develop worsening abdominal pain, persistent vomiting, or any other concerning symptoms return to the emergency department. Your blood pressure was also high today, please recheck this at home and with your primary care provider. Discharge Date/Time: 04/09/19 05:09
[2019-04-09 01:52] LABS: ALBUMIN 4.3 g/dL (3.2-5.5); ALBUMIN/GLOBULIN RATIO 1.4 (1.0-2.2); BILIRUBIN,TOTAL 0.3 mg/dL (0.2-1.0); CALCIUM 9.9 mg/dL (8.5-10.3); CREATININE 0.9 mg/dL (0.4-1.0); TOTAL PROTEIN 7.3 g/dL (6.7-8.2)
[2019-04-09 02:14] LABS: PLATELET MORPHOLOGY NORMAL APPEARANCE (NORMAL)
[2019-04-09 02:15] LABS: PLATELET ESTIMATE, MANUAL INCREASED (>450,000) (NORMAL)
[2019-04-09] MEDS ORDERED: IOVERSOL 320 100 ML VIAL IVP ONE ×2 (03:06→03:18)
[2019-04-09 03:15] LABS: BILIRUBIN,URINE NEGATIVE (NEGATIVE); GLUCOSE, URINE (UA) NEGATIVE (NEGATIVE); KETONES,URINE (UA) 40 mg/dL (NEGATIVE); LEUKOCYTE ESTERASE, URINE TRACE (NEGATIVE); NITRITE,URINE NEGATIVE (NEGATIVE); OCCULT BLOOD,URINE NEGATIVE (NEGATIVE); PH,URINE 7.5 PH (5.0-7.5); PROTEIN,URINE NEGATIVE (NEGATIVE); UROBILINOGEN,URINE 0.2 (NORMAL) E.U./dL (NORMAL)
[2019-04-09 03:17] LABS: CLARITY,URINE CLEAR (CLEAR)
[2019-04-09 03:22] LABS: BACTERIA,URINE Many /HPF (None Seen); RBC,URINE None Seen /HPF (0-5); SQUAMOUS EPITHELIAL CELL,UR MOD Squamous (<= Few)
--- NOTE | 2019-04-09 03:36 | CT Report ---
Reason: Abd pain, vomiting, hx obstruction and perforation Procedure Date: 04/09/2019 Accession Number: [id number] / [id number] Procedure: CT - Abdomen/Pelvis W CPT Code: FULL RESULT: EXAM: CT ABDOMEN AND PELVIS EXAM DATE: 04/09/2019 03:16 AM. CLINICAL HISTORY: Abd pain, vomiting, hx obstruction and perforation. COMPARISONS: None. TECHNIQUE: Routine helical CT imaging was performed through the abdomen and pelvis. IV contrast: OPTI 320 100ML. Enteric contrast: No. Reconstructions: Coronal and sagittal. In accordance with CT protocol optimization, one or more of the following dose reduction techniques were utilized for this exam: automated exposure control, adjustment of mA and/or KV based on patient size, or use of iterative reconstructive technique. FINDINGS: Lung Bases: Moderate hiatal hernia. Liver: Normal. No masses. Gallbladder/Bile Ducts: Unremarkable. Spleen: Normal. Pancreas: Normal. Adrenal Glands: Normal. Kidneys: Normal. No masses or hydronephrosis. Peritoneal Cavity/Bowel: Normal. No free fluid, free air or adenopathy. No masses or acute inflammatory process. The appendix is well visualized and normal. Pelvic Organs: Trace free fluid in the pelvis. No adenopathy. The pelvic organs appear unremarkable. Vasculature: No aneurysms or other significant abnormality. Bones: Degenerative changes, with levoscoliosis of the thoracolumbar junction. Other: None. IMPRESSION: Moderate hiatal hernia. No evident etiology for patient's nausea and vomiting. RADIA
[2019-04-09 05:08] VITALS: BP 200/89
== END 2019-04-09 05:09 | disposition home or self-care (01) ==
LOC: ED 00:39
DX: R10.84 Generalized abdominal pain (principal); R11.2 Nausea with vomiting, unspecified; K44.9 Diaphragmatic hernia without obstruction or gangrene; D64.9 Anemia, unspecified; D72.829 Elevated white blood cell count, unspecified; Z87.19 Personal history of other diseases of the digestive system; I10 Essential (primary) hypertension; Z79.82 Long term (current) use of aspirin
CPT/HCPCS: 36415; 74177; 80053; 81001; 83690; 85025; 96361; 96374; 99284; Q9967; 81003; 87086

== ENCOUNTER 2019-10-31 20:27 | Outpatient (CLI) | payer MEDICARE | END 2019-10-31 23:59 | disposition critical access hospital (66) | LOC: EMS 20:27 | PROVIDERS: ATTEND Surgery | DX: R42 Dizziness and giddiness (principal); R11.0 Nausea | CPT/HCPCS: A0425; A0427 ==

== ENCOUNTER 2019-10-31 21:04 | Emergency (ER) | payer MEDICARE ==
[2019-10-31] MEDS ORDERED: SODIUM CHLORIDE 0.9% 1,000 ML IV STA (21:26)
--- NOTE | 2019-10-31 21:26 | ED Physician Documentation ---
History of Present Illness - Stated complaint Stated Complaint: DIZZINESS - Chief complaint Chief Complaint: Neuro - Additonal information Additional information: This is a 74-year-old female with history of hypertension and vertigo who pres ents with acute onset of vertigo. Patient states that around 2 hours ago at 19:30, patient began to have feelings of room spinning around her and persistent vomiting. It is worse when she opens her eyes up. She has not been able to walk because movement makes her feel worse. She has vomited multiple times. She denies any chest pain, shortness of breath. She denies any weakness or numbness, denies any problems with coordination. She had a similar episode of this years ago which resolved after she took an unknown medication. 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 : Incontinence, Frequency HEENT: None Psych: None Musculoskeletal: Scoliosis Derm: None - Past Surgical History Past Surgical History: No General: Colonoscopy HEENT: Cataracts - Present Medications Home Medications: Ambulatory Orders Medication Instructions Recorded Confirmed Ascorbic Acid [Vitamin C] 500 mg PO DAILY 04/05/18 04/05/18 Aspirin [Aspirin EC] 81 mg PO DAILY 04/05/18 04/05/18 Calcium Carbonate/Vitamin D3 1 each PO DAILY 04/05/18 04/05/18 [Calcium 600-Vit D3 400 Tablet] Cetirizine HCl 10 mg PO DAILY 04/05/18 04/05/18 Fluticasone [Flonase] 2 sprays AUSTEN DAILY 04/05/18 04/05/18 Loratadine [Claritin] 10 mg PO DAILY 04/05/18 04/05/18 Multivitamin [Theragran] 1 tab PO DAILY 04/05/18 04/05/18 carvediloL [Carvedilol] 9.375 mg PO BID 04/05/18 04/05/18 lisinopriL [Lisinopril] 20 mg PO BID 04/05/18 04/05/18 Ciprofloxacin HCl [Cipro] 500 mg PO BID #14 tablet 04/08/18 Docusate Sodium 250Mg Capsule 250 mg PO DAILY #10 capsule 04/08/18 [Colace 250Mg Capsule] metroNIDAZOLE [Flagyl] 250 mg PO Q6H #28 tablet 04/08/18 oxyCODONE/ACET 5/325 [Percocet 5 1 each PO Q4-6H #20 tablet 04/08/18 mg/325 mg] Ondansetron Odt [Zofran] 4 mg TL Q6H PRN #8 tablet 04/09/19 Meclizine HCl 25 mg PO TID PRN #12 tab.chew 11/01/19 - Allergies Allergies/Adverse Reactions: Allergies Allergy/AdvReac Type Severity Reaction Status Date / Time No Known Drug Allergies Allergy Verified 10/31/19 21:13 - Social History Does the pt smoke?: No Smoking Status: Never smoker Does the pt drink ETOH?: Yes Does the pt have substance abuse?: No - Immunizations Immunizations are current?: Yes - POLST Patient has POLST: No PD ED PE NORMAL - Vitals Vital signs reviewed: Yes - General General: Alert and oriented X 3, Other (Uncomfortable appearing) - HEENT HEENT: Other (Rotary nystagmus present bilaterally, movement of her eyes causes nausea. ) - Neck Neck: Supple, no meningeal sign - Cardiac Cardiac: RRR, No murmur - Respiratory Respiratory: No respiratory distress, Clear bilaterally - Abdomen Abdomen: Normal bowel sounds, Soft, Non tender, Non distended - Derm Derm: Warm and dry - Extremities Extremities: No deformity - Neuro Neuro: Alert and oriented X 3, rn prior authorization 2-12 intact, No motor deficit, No sensory deficit, Normal speech, Other (No dysmetria with [id number]-zr-[id number] testing and with hlnj-vy-kdgc testing. On head impulse testing there is a delay. There is no skew. There is rotary nystagmus) - Psych Psych: Normal mood, Normal affect Results - Vitals Vitals: Vital Signs - 24 hr 10/31/19 11/01/19 21:10 00:00 Temperature 36.8 C Heart Rate 75 69 Respiratory 17 14 Rate Blood Pressure 204/129 H 142/63 H O2 Saturation 100 97 Oxygen O2 Source Room air - EKG (time done) 21:30 Other comments: Other comments (Rate 77, rhythm sinus with PVC. No ST segment elevation or depression, no abnormal T wave changes. ) - Labs Labs: Laboratory Tests 10/31/19 10/31/19 21:34 21:34 WBC 19.8 H RBC 4.42 Hgb 11.8 L Hct 37.6 MCV 85.1 MCH 26.7 L MCHC 31.4 L RDW 17.9 H Plt Count 433 MPV 9.4 Neut # (Auto) 16.1 H Lymph # (Auto) 1.8 [place] # (Auto) 1.2 H Eos # (Auto) 0.5 Baso # (Auto) 0.1 Absolute Nucleated RBC 0.00 Nucleated RBC % 0.0 Sodium 134 L Potassium 3.2 L Chloride 105 Carbon Dioxide 24 Anion Gap 5.0 L BUN 21 H Creatinine 0.7 Estimated GFR (MDRD) 82 L Glucose 161 H Calcium 8.2 L Total Bilirubin 0.4 AST 21 ALT 23 Alkaline Phosphatase 65 Total Protein 6.2 L Albumin 3.6 Globulin 2.6 Albumin/Globulin Ratio 1.4 Lipase 56 H PD MEDICAL DECISION MAKING - ED course Complexity details: considered differential (Mnire's disease, benign positional vertigo, stroke, medication side effect) ED course: On arrival patient is uncomfortable appearing, she has nystagmus which is ongoing, no other neurologic findings, no focal deficits. She has a reassuring HINTS exam. She was given Valium IV. Her labs are notable for leukocytosis, and mild anemia. She has mild hyponatremia and hypokalemia. She has a benign abdominal exam with no tenderness whatsoever. She has clear lungs, normal oxygen saturation, no respiratory complaints. After the Valium she had complete resolution of her symptoms she has no vertigo, she is feeling well, has no complaints whatsoever and she would like to go home. She has no fever, no tachycardia, no signs of infection other than the leukocytosis. This may be secondary to demargination as she was very uncomfortable with repeated episodes of vomiting when she did arrive. She denies urinary complaints, no dysuria. Given that her symptoms are completely resolved and she can walk, move her head, she has no nystagmus this or vomiting, and she is neurologically intact, she appears appropriate for outpatient follow-up - I do not see signs of central vertigo or stroke today. I reviewed Racquel maneuvers with her, prescribed her meclizine, and she was discharged home in good condition. Departure - Departure Disposition: 01 Home, Self Care Clinical Impression: Vertigo Condition: Good Instructions: ED Vertigo Unspecified Follow-Up: DONN MOORE MD [Primary Care Provider] - Prescriptions: Meclizine HCl 25 mg PO TID PRN #12 tab.chew PRN Reason: Vertigo Comments: You were seen today for vertigo. This is likely due to some crystals in your inner ear as we discussed. You may use the meclizine as needed for symptoms, you may also try the Racquel maneuvers. Meclizine can be a bit sedating. If you are having any weakness or numbness, persistent vertigo/vomiting, or other new concerning symptoms, return to the emergency department Discharge Date/Time: 11/01/19 00:40
[2019-10-31] MEDS ORDERED: diazePAM INJ 5 MG/ML SYRINGE IVP STA (21:27)
[2019-10-31] MEDS ORDERED: ONDANSETRON 4 MG/2 ML VIAL IVP STA (21:31)
[2019-10-31 21:41] LABS: BASOPHILS # (AUTO) 0.1 10^3/uL (0.0-0.1); BASOPHILS % (AUTO) 0.6 %; EOSINOPHILS # (AUTO) 0.5 10^3/uL (0.0-0.7); EOSINOPHILS % (AUTO) 2.4 %; HGB - HEMOGLOBIN 11.8 g/dL (12.0-16.0); LYMPHOCYTES # (AUTO) 1.8 10^3/uL (1.5-3.5); MEAN CORPUSCULAR HEMOGLOBIN 26.7 pg (27.0-31.0); MEAN CORPUSCULAR HGB CONC 31.4 g/dL (32.0-36.0); MEAN CORPUSCULAR VOLUME 85.1 fL (81.0-99.0); MEAN PLATELET VOLUME 9.4 fL (7.9-10.8); MONOCYTES # (AUTO) 1.2 10^3/uL (0.0-1.0); MONOCYTES % (AUTO) 6.3 %; NEUTROPHILS # (AUTO) 16.1 10^3/uL (1.5-6.6); PLT - PLATELET COUNT 433 10^3/uL (130-450); RED BLOOD COUNT 4.42 10^6/uL (4.20-5.40); RED CELL DISTRIBUTION WIDTH 17.9 % (12.0-15.0); WHITE BLOOD COUNT 19.8 x10^3/uL (4.8-10.8)
[2019-10-31 21:53] LABS: ALBUMIN 3.6 g/dL (3.2-5.5); ALBUMIN/GLOBULIN RATIO 1.4 (1.0-2.2); BILIRUBIN,TOTAL 0.4 mg/dL (0.2-1.0); CALCIUM 8.2 mg/dL (8.5-10.3); CREATININE 0.7 mg/dL (0.4-1.0); TOTAL PROTEIN 6.2 g/dL (6.7-8.2)
[2019-11-01 00:24] VITALS: BP 142/63
[2019-11-01] MEDS ORDERED: MECLIZINE 12.5 MG TABLET PO STA (00:25)
== END 2019-11-01 00:40 | disposition home or self-care (01) ==
LOC: EDUNIT# → ED 21:04
DX: R42 Dizziness and giddiness (principal); I10 Essential (primary) hypertension
CPT/HCPCS: 36415; 80053; 83690; 85025; 93005; 96361; 96374; 99284; A9270

== ENCOUNTER 2022-09-24 13:33 | Outpatient (CLI) | payer MEDICARE ==
[2022-09-24 19:55] LABS: BASOPHILS # (AUTO) 0.1 10^3/uL (0.0-0.1); BASOPHILS % (AUTO) 1.5 %; EOSINOPHILS # (AUTO) 0.4 10^3/uL (0.0-0.7); EOSINOPHILS % (AUTO) 6.5 %; HCT - HEMATOCRIT 47.9 % (37.0-47.0); HGB - HEMOGLOBIN 13.7 g/dL (12.0-16.0); LYMPHOCYTES # (AUTO) 1.1 10^3/uL (1.5-3.5); LYMPHOCYTES % (AUTO) 20.3 %; MEAN CORPUSCULAR HEMOGLOBIN 25.3 pg (27.0-31.0); MEAN CORPUSCULAR HGB CONC 28.6 g/dL (32.0-36.0); MEAN CORPUSCULAR VOLUME 88.5 fL (81.0-99.0); MEAN PLATELET VOLUME 10.8 fL (7.9-10.8); MONOCYTES # (AUTO) 0.4 10^3/uL (0.0-1.0); MONOCYTES % (AUTO) 7.4 %; NEUTROPHILS # (AUTO) 3.5 10^3/uL (1.5-6.6); NEUTROPHILS % (AUTO) 64.1 %; PLT - PLATELET COUNT 418 10^3/uL (130-450); RED BLOOD COUNT 5.41 10^6/uL (4.20-5.40); WHITE BLOOD COUNT 5.5 x10^3/uL (4.8-10.8)
[2022-09-24 20:27] LABS: PLATELET ESTIMATE, MANUAL NORMAL (130-450,000) (NORMAL); PLATELET MORPHOLOGY NORMAL APPEARANCE (NORMAL); SLIDE REVIEW? Indicated
[2022-09-24 20:35] LABS: % IRON SATURATION 23 % (20-50); IRON 70 ug/dL (28-170); TOTAL IRON BINDING CAPACITY 300 ug/dL (250-450); TRANSFERRIN 214 mg/dL (192-382)
== END 2022-09-24 13:34 | disposition home or self-care (01) ==
LOC: LAB.S 13:33
PROVIDERS: ATTEND Student in an Organized Health Care Education/Training Program
DX: D50.9 Iron deficiency anemia, unspecified (principal)
CPT/HCPCS: 36415; 82728; 83540; 84466; 85025

== ENCOUNTER 2023-03-05 13:23 | Outpatient (CLI) | payer MEDICARE ==
[2023-03-05 20:12] LABS: BASOPHILS # (AUTO) 0.1 10^3/uL (0.0-0.1); BASOPHILS % (AUTO) 0.8 %; EOSINOPHILS # (AUTO) 0.2 10^3/uL (0.0-0.7); EOSINOPHILS % (AUTO) 3.2 %; HCT - HEMATOCRIT 43.7 % (37.0-47.0); HGB - HEMOGLOBIN 14.1 g/dL (12.0-16.0); LYMPHOCYTES # (AUTO) 0.8 10^3/uL (1.5-3.5); LYMPHOCYTES % (AUTO) 13.8 %; MEAN CORPUSCULAR HEMOGLOBIN 30.6 pg (27.0-31.0); MEAN CORPUSCULAR HGB CONC 32.3 g/dL (32.0-36.0); MEAN CORPUSCULAR VOLUME 94.8 fL (81.0-99.0); MEAN PLATELET VOLUME 10.3 fL (7.9-10.8); MONOCYTES # (AUTO) 0.4 10^3/uL (0.0-1.0); MONOCYTES % (AUTO) 7.1 %; NEUTROPHILS # (AUTO) 4.4 10^3/uL (1.5-6.6); NEUTROPHILS % (AUTO) 74.9 %; PLT - PLATELET COUNT 393 10^3/uL (130-450); RED BLOOD COUNT 4.61 10^6/uL (4.20-5.40); RED CELL DISTRIBUTION WIDTH 12.9 % (12.0-15.0); WHITE BLOOD COUNT 5.9 x10^3/uL (4.8-10.8)
[2023-03-05 20:24] LABS: ALBUMIN 3.8 g/dL (3.2-5.5); ALBUMIN/GLOBULIN RATIO 1.5 (1.0-2.2); BILIRUBIN,TOTAL 0.2 mg/dL (0.2-1.0); CALCIUM 9.5 mg/dL (8.5-10.3); CREATININE 0.7 mg/dL (0.6-1.3); POTASSIUM 4.1 mmol/L (3.5-4.5); TOTAL PROTEIN 6.4 g/dL (6.4-8.9)
[2023-03-05 20:44] LABS: FERRITIN 21.7 ng/mL (11.0-306.8)
== END 2023-03-05 13:24 | disposition home or self-care (01) ==
LOC: LAB.S 13:23
PROVIDERS: ATTEND Internal Medicine Hematology & Oncology
DX: D50.0 Iron deficiency anemia secondary to blood loss (chronic) (principal)
CPT/HCPCS: 36415; 80053; 82728; 83540; 84466; 85025

== ENCOUNTER 2023-06-17 14:36 | Outpatient (CLI) | payer MEDICARE ==
[2023-06-17 19:59] LABS: BASOPHILS # (AUTO) 0.1 10^3/uL (0.0-0.1); BASOPHILS % (AUTO) 1.3 %; EOSINOPHILS # (AUTO) 0.4 10^3/uL (0.0-0.7); EOSINOPHILS % (AUTO) 6.1 %; HCT - HEMATOCRIT 45.4 % (37.0-47.0); HGB - HEMOGLOBIN 14.9 g/dL (12.0-16.0); LYMPHOCYTES # (AUTO) 1.1 10^3/uL (1.5-3.5); LYMPHOCYTES % (AUTO) 18.4 %; MEAN CORPUSCULAR HEMOGLOBIN 29.9 pg (27.0-31.0); MEAN CORPUSCULAR HGB CONC 32.8 g/dL (32.0-36.0); MONOCYTES # (AUTO) 0.6 10^3/uL (0.0-1.0); MONOCYTES % (AUTO) 10.4 %; NEUTROPHILS # (AUTO) 3.8 10^3/uL (1.5-6.6); NEUTROPHILS % (AUTO) 63.6 %; PLT - PLATELET COUNT 389 10^3/uL (130-450); RED BLOOD COUNT 4.99 10^6/uL (4.20-5.40); RED CELL DISTRIBUTION WIDTH 13.7 % (12.0-15.0)
[2023-06-17 20:43] LABS: THYROID STIMULATING HORMONE 2.42 uIU/mL (0.34-5.60)
[2023-06-17 20:46] LABS: FERRITIN 29.3 ng/mL (11.0-306.8)
== END 2023-06-17 14:37 | disposition home or self-care (01) ==
LOC: LAB.S 14:36
PROVIDERS: ATTEND Physician Assistant Medical
DX: D64.9 Anemia, unspecified (principal); Z13.9 Encounter for screening, unspecified
CPT/HCPCS: 36415; 82728; 84443; 85025

== ENCOUNTER 2023-11-23 14:14 | Outpatient (CLI) | payer MEDICARE ==
[2023-11-23 19:51] LABS: ABSOLUTE RETICS # AUTO 0.071 10^6/uL (0.020-0.110); BASOPHILS # (AUTO) 0.1 10^3/uL (0.0-0.1); BASOPHILS % (AUTO) 1.1 %; EOSINOPHILS # (AUTO) 0.4 10^3/uL (0.0-0.7); EOSINOPHILS % (AUTO) 6.2 %; HGB - HEMOGLOBIN 14.9 g/dL (12.0-16.0); LYMPHOCYTES # (AUTO) 1.2 10^3/uL (1.5-3.5); LYMPHOCYTES % (AUTO) 18.8 %; MEAN CORPUSCULAR HEMOGLOBIN 29.8 pg (27.0-31.0); MEAN CORPUSCULAR HGB CONC 31.7 g/dL (32.0-36.0); MEAN PLATELET VOLUME 10.4 fL (7.9-10.8); MONOCYTES # (AUTO) 0.6 10^3/uL (0.0-1.0); MONOCYTES % (AUTO) 9.8 %; NEUTROPHILS # (AUTO) 4.1 10^3/uL (1.5-6.6); NEUTROPHILS % (AUTO) 63.9 %; PLT - PLATELET COUNT 385 10^3/uL (130-450); RED CELL DISTRIBUTION WIDTH 13.4 % (12.0-15.0); RETICULOCYTE COUNT % (AUTO) 1.41 % (0.5-2.3); WHITE BLOOD COUNT 6.3 x10^3/uL (4.8-10.8)
[2023-11-23 20:05] LABS: % IRON SATURATION 57 % (20-50); ALBUMIN/GLOBULIN RATIO 1.6 (1.0-2.2); ALKALINE PHOSPHATASE 46 IU/L (42-121); ALT ALANINE AMINOTRANSFERASE 19 IU/L (10-60); AST ASPARTATE AMINOTRANSFERASE 18 IU/L (10-42); BILIRUBIN,TOTAL 0.4 mg/dL (0.2-1.0); BUN - BLOOD UREA NITROGEN 14 mg/dL (6-20); CALCIUM 9.7 mg/dL (8.5-10.3); CARBON DIOXIDE - CO2 26 mmol/L (21-32); CHLORIDE 104 mmol/L (101-111); CREATININE 0.7 mg/dL (0.6-1.3); CRP - C-REACTIVE PROTEIN < 0.5 mg/dL (<0.5); GFR - MDRD 81 (>89); GLUCOSE 99 mg/dL (74-104); IRON 169 ug/dL (50-212); POTASSIUM 4.4 mmol/L (3.5-4.5); SODIUM 133 mmol/L (135-145); TOTAL IRON BINDING CAPACITY 298 ug/dL (250-450); TOTAL PROTEIN 6.5 g/dL (6.4-8.9); TRANSFERRIN 213 mg/dL (203-362)
[2023-11-23 20:17] LABS: THYROID STIMULATING HORMONE 3.01 uIU/mL (0.34-5.60)
== END 2023-11-23 14:15 | disposition home or self-care (01) ==
LOC: LAB.S 14:14
PROVIDERS: ATTEND Physician Assistant Medical
DX: R53.83 Other fatigue (principal)
CPT/HCPCS: 36415; 80053; 82607; 82728; 82746; 83540; 84443; 84466; 85025; 85045; 85651; 86140

== ENCOUNTER 2024-01-07 14:07 | Outpatient (CLI) | payer MEDICARE ==
--- NOTE | 2024-01-07 14:49 | Sleep Patient Instructions ---
Sleep Center Visit Summary - Patient Visit Information Reason for Visit: Initial consult for evaluation of sleep disordered breathing and other sleep issues. - Patient Instructions Instructions Attached: Sleep Study Additional Instructions: You will be completing a sleep study, either an in-lab polysomnography (PSG) or home sleep study (HST). You will follow-up in the sleep care office after the sleep study is completed to hear the results and talk about therapy, if needed. You will be called by our office staff to schedule this appointment, but you may contact us with any questions. - Clinic Information Contact: [facility] [address] [place] [address] [email or web address] T: [phone]
--- NOTE | 2024-01-07 14:54 | SLEEP CARE CONSULTATION ---
Information from patient questionnaire entered by Ned Bojorquez. I have reviewed and concur with the information entered by Ned Bojorquez. This document represents the service I personally performed and the decisions made by me, Megha Torre ARNP. History of Present Illness Service Date and Time: 01/07/2024 1407 Reason for Visit: New patient Chief Complaint: reports: Unrefreshed sleep, Snoring, Excessive daytime sleepiness, Frequent awakenings at night Date of Onset: At most a year Usual bedtime: 11:30 Time it takes to fall asleep: 15 - 20 minutes Snores at night: Yes Observed to quit breathing while asleep: No (I sleep alone) Sleeps alone due to snoring: No (I sleep alone) Number of times waking at night: According to my fitbit, I woke up 15 times Reasons for waking at night: reports: Bathroom Toss, Turn, or Twitch while sleeping: No Recalls having dreams: Yes Usually gets out of bed at: 8:30 - 9:00 Feels refreshed in the morning: No Morning headache: No Sleepy or fatigued during the day: Yes Ever fallen asleep while driving: No Takes day naps: No Dreams during day naps: No Prior sleep studies: No Additional HPI information: I had the pleasure of seeing RUPESH ALMEIDA today regarding the possibility of her having a sleep disorder. Her current complaints are excessive daytime sleepiness, frequent night awakenings, snoring and unrefreshed sleep. She says she is tired all the time even though she gets enough sleep. She says her Fitbit tells her she wakes up 18 times or so a night but she only remembers getting up for the bathroom once during the night. She has had a history of anemia that was resolved with supplementation. She feels like her energy is fine but she always feels tired despite getting at least 8 hours of sleep. She sleeps separate from because he moves a lot in his sleep which keeps her awake. She says she takes Seroquel before bed to help her sleep and then a serotonin when she gets up the the bathroom during the night. She has high blood pressure and they have had to increase her dose to control her pressures. She denies waking up feeling like she is choking or gasping for air. She denies waking up with headaches or any drowsy driving. - Parasomnia Symptoms Ever been unable to move upon waking from sleep: No Walks in sleep: No Talks in sleep: No Ever felt weak in the knees when startled or emotional: No Bothered by creepy, crawly, restless sensations in legs: No Problems with memory or concentration: No Subjective Initial Conover Sleepiness Scale score: 0 (in 2023) Past Medical History Past Medical History: reports: Hypertension, Anemia Social History The patient is retired. Patient is and lives in [place]. Have you smoked in the past 12 months: No Alcohol use: No Caffeine use: Yes Caffeine amount and frequency: 1 cup of coffee in the morning Family History Family history of sleep disordered breathing: No Family Hx Sleep Apnea: Father: Snoring Allergies and Home Medications Known drug allergies: No Drug allergies reviewed: Yes Home medication list reviewed: Yes (as listed) Allergy and home medication list: Allergies No Known Drug Allergies Allergy (Verified 01/05/24 10:09) Medications: Amlodipine Lisinopril Carvedilol Seroquel for sleep Serotonin for sleep Review of Systems Weight gain over past 5 years: 5-6 Cardiovascular: reports: high blood pressure Gastrointestinal: denies: heartburn Urinary: reports: incontinence Neurological: denies: headaches, head trauma Psychiatric: denies: anxiety, depression Ear/Nose/Throat: reports: nasal congestion, tonsillectomy. denies: injury to nose Endocrine: reports: sluggishness (/tired) Immunologic: reports: sneezing (/runny nose) Physical Exam Vital signs obtained and entered by: Megha Grant NP Blood Pressure: 145/78 Cuff size: regular (left arm) Heart Rate: 66 O2 Saturation: 99 Height: 5 ft 5 in Weight: 128 lb 12.8 oz Body Mass Index: 21.4 BMI Classification: Normal Neck circumference: 13.5 (inches) Mouth and throat: narrow oropharynx Soft palate: long Hard palate: normal Uvula: normal Uvula visualization: 0% Mallampati Class IV Tongue: enlarged in size with teeth bains on lateral edges Tonsils: absent bilaterally Neck: normal w/o lymphadenopathy or thyromegaly Heart: regular rate and rhythm Lungs: clear bilaterally Impression and Plan 1. Suspected Obstructive Sleep Apnea-Hypopnea Syndrome, as suggested by a history of loud and irregular snoring, frequent awakening during the night, excessive daytime sleepiness and unrefreshed sleep. Narrow oropharynx and obesity are common predisposing factors for obstructive sleep apnea-hypopnea syndrome. I recommend proceeding to polysomnography to confirm the diagnosis and to assess severity. If the patient has significant sleep disordered breathing, a manual CPAP titration study will also be performed to find the optimal treatment pressure. I informed the patient of what the sleep studies involve and after some discussion, obtained agreement to proceed. The pathophysiology of obstructive sleep apnea-hypopnea syndrome was discussed with the patient and health risks of cardiovascular and cerebrovascular disease if not treated. Risks of drowsy driving discussed in detail and patient advised to avoid long distance driving and to gut puller at the first sign of drowsiness. Patient agreed to plan. * Schedule polysomnography * Avoid long distance driving or driving when feeling sleepy. * Avoid alcohol, sedative and muscle relaxant around bedtime. * Review instructions provided by trained office staff on how to prepare for the sleep study. * Return for follow-up after sleep study completed. Plan: PSG and followup Visit Type: In Office Time Spent with Patient (minutes): 30 Provider Statement: I spent 100% of the Face to Face Visit with the patient with greater than 50% spent counseling the patient and coordination of care.
[2024-01-07 15:02] VITALS: BP 145/78; O2SAT 99
== END 2024-01-07 14:08 | disposition home or self-care (01) ==
LOC: SC 14:07
PROVIDERS: ATTEND Nurse Practitioner Family
DX: G47.8 Other sleep disorders (principal); R06.83 Snoring; G47.10 Hypersomnia, unspecified; I10 Essential (primary) hypertension
CPT/HCPCS: 99203; G0463; 99212

== ENCOUNTER 2024-01-17 14:50 | Outpatient (CLI) | payer MEDICARE | END 2024-01-17 14:51 | disposition home or self-care (01) | LOC: DI 14:50 | PROVIDERS: ATTEND Physician Assistant Medical | DX: I08.0 Rheumatic disorders of both mitral and aortic valves (principal); R06.09 Other forms of dyspnea; R53.83 Other fatigue | CPT/HCPCS: 93307 ==

== ENCOUNTER 2024-01-26 20:50 | Outpatient (CLI) | payer MEDICARE | END 2024-01-26 20:51 | disposition home or self-care (01) | LOC: SC 20:50 | PROVIDERS: ATTEND Nurse Practitioner Family | DX: G47.10 Hypersomnia, unspecified (principal); G47.8 Other sleep disorders; R06.83 Snoring; I10 Essential (primary) hypertension | CPT/HCPCS: 95810 ==

== ENCOUNTER 2024-02-09 11:32 | Outpatient (CLI) | payer MEDICARE ==
--- NOTE | 2024-02-09 11:55 | Sleep Patient Instructions ---
Sleep Center Visit Summary - Patient Visit Information Reason for Visit: Sleep study follow up - Patient Instructions Additional Instructions: Your sleep study today was negative for significant sleep disordered breathing. You should return to PCP for further evaluation of your fatigue. Follow-up as needed. - Clinic Information Contact: [facility] [address] [place] [address] [email or web address] T: [phone]
--- NOTE | 2024-02-09 12:10 | SLEEP CARE CONSULTATION ---
Information from patient questionnaire entered by Mireya Buckley. I have reviewed and concur with the information entered by Mireya Buckley. This document represents the service I personally performed and the decisions made by , Megha Torre ARNP. History of Present Illness Service Date and Time: 02/09/2024 1132 Initial Howard Sleepiness Scale score: 0 (in 2023) Current Howard Sleepiness Scale score: 1 (02/09/24) Additional HPI information: RUPESH ALMEIDA returns for follow up and results of the recently performed polysomnography done on 01/26/2024. The patient was informed of the following findings: No significant sleep disord ered breathing with an average AHI of 0.0 and erasto oxygen saturation of 91%. Patient did not sleep supine, so sleep disordered breathing supine could not be ruled out. I explained the pathophysiology behind obstructive sleep apnea. Patient does not have sleep apnea and was advised how weight gain could increase the risk of developing sleep apnea in the future. Patient has very light snoring. Patient does not drink alcohol. Patient was cautioned about risks of drowsy driving until sleepiness symptoms resolve. Patient denies drowsy driving. Sleep Study - Results Type of Sleep Study: Polysomnography (COMPLETED 01/26/24) Prior sleep studies: No Polysomnography/Home Sleep Study results: IMPRESSION: The quality of the study is good. 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 The sleep architecture was abnormal for lack of REM sleep. Respira tory monitoring showed no significant sleep disordered breathing (AHI = 0.0) or hypoxia (erasto oxygen saturation of 91%). The patient did not sleep supine during this study. No audible snore. There was no significant periodic leg movement of sleep. Cardiac rhythm was normal sinus rhythm without significant arrhythmia. No abnormal behavior (parasomnia) observed during the night. CONCLUSIONS and RECOMMENDATIONS: 1. This is a normal in-laboratory polysomnography. However, because the patient did not sleep supine during this study, significant sleep disordered breathing during supine sleep cannot be ruled out. Clinical correlation advised. Allergies and Home Medications Known drug allergies: No Drug allergies reviewed: Yes Home medication list reviewed: Yes (no changes) Allergy and home medication list: Allergies No Known Drug Allergies Allergy (Verified 02/09/24 11:32) Review of Systems Review of systems same as previous: Yes (no changes) Physical Exam Vital signs obtained and entered by: MIREYA Sher MA Blood Pressure: 134/74 (LEFT ARM) Cuff size: regular Heart Rate: 70 O2 Saturation: 98 Height: 5 ft 5 in Weight: 132 lb 3.2 oz Body Mass Index: 21.9 BMI Classification: Normal Impression and Plan 1. Fatigue, unspecified. Patient did not have significant sleep disordered breathing on night of sleep study with an average AHI of 0.0, however she did not sleep supine. She states she never sleeps on her back. She continues to ask why she is so fatigued during the day. She says she does have energy and does not feel like napping. But, she feels tired all the time. She does not feel like she gets enough sleep at night but even when she does get 8 hours of sleep she does not wake up feeling refreshed. I advised her to return to her primary provider for further evaluation of her daytime fatigue. * Follow up with PCP for fatigue * The patient is cautioned about driving until sleepiness is completely resolved. * Return as needed for follow up. Follow up with Sleep Care in: as needed Visit Type: In Office Time Spent with Patient (minutes): 12 Provider Statement: I spent 100% of the Face to Face Visit with the patient with greater than 50% spent counseling the patient and coordination of care.
[2024-02-09 12:22] VITALS: BP 134/74; O2SAT 98
== END 2024-02-09 11:33 | disposition home or self-care (01) ==
LOC: SC 11:32
PROVIDERS: ATTEND Nurse Practitioner Family
DX: R53.83 Other fatigue (principal)
CPT/HCPCS: 99212; G0463